=== PATIENT | male | born 1955 | race Caucasian/White ===

== ENCOUNTER 2023-06-18 04:40 | Emergency (ER) | payer OTHER, SELFPAY ==
[2023-06-18 04:41] VITALS: BP 137/89
--- NOTE | 2023-06-18 04:53 | ED.GENMED ---
History of Present Illness
General
Chief Complaint: Flank Pain
Time Seen by Provider: 06/18/23 04:49
Travel History
Have you had any contact with someone who has COVID-19?: No
Do you have any symptoms of coronavirus? Fever > 100 degrees, chills, cough, shortness of breath, sore throat, loss of taste or smell, muscle aches, or headache?: No
History of Present Illness
History of Present Illness:
HPI: About 3 hours ago, the patient had onset right flank pain. This feels similar to his 2 other kidney stone types of pain in the past. He also reports having a 'renal aneurysm'. He took Tylenol and Flomax�symptoms improved and then
dramatically worsened and was vomiting but now currently improved again. He states his last renal function was normal.
EXAM:
GENERAL: Well appearing in no significant distress
HEENT: Moist oral mucosa
CARDIOVASCULAR: No murmurs, normal heart rate, regular rhythm, No chest wall tenderness
PULMONARY: No respiratory distress, breath sounds are clear and equal
ABDOMEN: Soft with no peritoneal signs, no tenderness, no CVA tenderness
NEUROLOGIC: Excellent strength all extremities, no coordination deficits
PSYCHIATRIC: Appropriate mental status, normal insight and judgement
EXTREMITIES: Nontender, no edema, moves all extremities equally
SKIN: No rash, no lesions
TIME OF INITIAL ENCOUNTER: 5 AM
NUMBER AND COMPLEXITY OF PROBLEMS ADDRESSED AT THE ENCOUNTER
� Chronic conditions affecting care: Kidney stones, BPH, 'renal aneurysm', diabetes
� Acute Exacerbation and/or Progression of Chronic Illness: This is an acute problem
� Differential Diagnosis includes: Ureteral stone, pyelonephritis, musculoskeletal low back pain, renal artery aneurysm rupture
AMOUNT AND/OR COMPLEXITY OF DATA TO BE REVIEWED AND ANALYZED
� I performed an independent evaluation of and my interpretation is:
EKG:
CT: I personally reviewed CT imaging and see evidence for a small right UVJ stone
X-rays:
Laboratory Studies: CBC and chemistries relatively unremarkable except for glucose of 162, hematuria noted but no evidence for infection
Other:
� Review of other/old records: The patient had surgical removal of left mid ureteral [place] [address] Gordon
� Clinical information was obtained by an independent historian: I spoke to family at bedside
� Prescriptions/Medications Considered but not given:
� Further testing considered but not performed:
RISK OF COMPLICATIONS AND/OR MORBIDITY OR MORTALITY OF PATIENT MANAGEMENT
� Social determinants of health affecting care: Lives at home
� Discussion with other providers:
� Escalation of care including admission/observation vs risk of discharge considered: I discussed risk and benefits of CT imaging�patient wishes to proceed with CT imaging at this time. Toradol was given. He appears fairly
comfortable upon arrival. CT imaging personally reviewed and I see evidence for UVJ stone. He was given Toradol but now on reassessment at around 5:50 AM, pain has worsened�will give a dose of Dilaudid. On reassessment at 6 AM, the patient
appears comfortable.
Past History
Past History
ED Past Medical History: HTN, Hypercholesterolemia and Other (Kidney stone, left renal aneurism)
ED Past Surgical History: Orthopedic (Fractured wrist and other fractures) and Urological (9 prostatic hypertrophy)
Social History
Personal:
Living: with family
Employment: Employed
Phy Exam
Physical Exam
Physical Exam:
See HPI
Course
Orders/Labs/Results
Orders:
Orders
06/18/23 04:53
0.9% Sodium Chloride 1000 ml [Nss] 1,000 ml IV BOLUS
Ketorolac [Toradol] 15 mg IV NOW STA
06/18/23 04:54
CT Abd/pel Without Iv Or Oral Urgent
Comment:
Reason For Exam: abrupt R flank pain, h/o 'renal aneurysm'
06/18/23 05:07
Complete Blood Count/With Diff Urgent
Comprehensive Metabolic Panel Urgent
Urinalysis Reflex To Culture Urgent
Date Specimen was Collected: 06/18/23
Time Specimen was Collected: 05:04
Urine Microscopic Reflex Cult Urgent
06/18/23 05:43
HYDROmorphone [Dilaudid] 1 mg IV NOW STA
Ondansetron Injectable [Zofran] 4 mg IV NOW STA
Abnormal Lab Results
06/18/23
05:07
MPV 10.6 H fL
(7.4-10.4)
Lymphocytes % 20.3 L %
(20.5-51.1)
BUN 27 H mg/dl
(9-20)
Glucose 162 H mg/dl
(70-99)
Calcium 10.3 H mg/dl
(8.4-10.2)
Ur Occult Blood Reflex 4+ A
(Negative)
Leukocyte Esterase Rfl Trace A
(Negative)
Urine RBC >100 A /HPF
(0-2)
Urine Bacteria (Reflex) Few A
(Negative)
06/18/23 05:07
06/18/23 05:07
Vital Signs
Initial and Last Documented VS:
Initial Vital Signs
Temp Pulse Resp BP Pulse Ox
97.8 F 74 18 137/89 97
06/18/23 04:41 06/18/23 04:41 06/18/23 04:41 06/18/23 04:41 06/18/23 04:41
Last Documented Vital Signs
Temp Pulse Resp BP Pulse Ox
97.8 F 68 16 112/74 98
06/18/23 04:41 06/18/23 05:52 06/18/23 05:52 06/18/23 05:52 06/18/23 05:52
*Critical Care Note
Total Time (30-74mins, 75-104mins- exclusive of procedures): Not Applicable
ED Attending Note
-
Portions of this chart may have been created with voice recognition software.� Occasional wrong word or��sound alike� substitutions may have occurred due to the inherent limitations of voice recognition software.
Discharge Plan
Departure
Patient Disposition: Home (Routine Discharge)
Date of Disposition: 06/18/23
Time of Disposition: 05:58
Patient with high blood pressure during this ER visit?: Yes
Discharge Problem:
Ureteral calculus
Instructions: Kidney Stones (DC), How to Strain Your Urine, BLOOD PRESSURE
Prescriptions:
New
oxycodone-acetaminophen [Percocet] 5-325 mg tablet
1 - 2 tab PO Q8HPRN PRN (Reason: pain) Qty: 14 0RF
ondansetron HCl 4 mg tablet
4 mg PO Q8H PRN (Reason: nausea and vomiting) 3 Days Qty: 14 0RF
No Action
aspirin 81 MG tablet,delayed release (DR/EC)
81 mg PO DAILY
phenazopyridine 100 MG tablet
100 mg PO TIDPRN PRN (Reason: burning on urination) Qty: 0 0RF
ondansetron 4 MG tablet,disintegrating
4 mg PO TIDPRN PRN (Reason: nausea/vomiting) Qty: 6 0RF
tamsulosin 0.4 MG capsule
0.4 mg PO DAILY Qty: 14 0RF
Referrals:
UNKNOWN - PT DOES,NOT KNOW [Unknown Provider] -
Activity Restrictions/Additional Instructions:
You have a 2mm stone at the junction or right ureter and bladder. Please follow-up with a urologist such as Dr. Chahal. I recommend either 3-4 [id number] ibuprofen (Motrin) every 8 hours OR Aleve twice daily with food for a few days.
Return here if worse. Continue Flomax. Blood is noted on urinalysis as expected with kidney stones however there is no clear sign for urinary tract infection. Kidney function is normal. Other basic labs including white blood cell count are
normal.
Interventions
Interventions:
*Risk Screen - Suicide Last Done: 06/18/23 04:41
*General Assessment Last Done: 06/18/23 04:41
*Neglect/Abuse Screening Last Done: 06/18/23 04:41
MX-Cuqufx-Ftemgqrxnf Assessment Last Done: 06/18/23 05:10
ED-Male Genitourinary Assessment Last Done: 06/18/23 05:10
Discharge Date and Time
Print Language: MACANESE
[2023-06-18 04:58] VITALS: BMI 29.2
[2023-06-18] MEDS: TORADOL 15 MG IV (05:05)
[2023-06-18] MEDS: NSS 1000 IV (05:05)
[2023-06-18 05:15] LABS: % Basophils 0.7 % (0-2); % Eosinophils 1.2 % (0-6); % Immature Granulocytes 0.5 % (0-0.5); % Lymphocytes 20.3 % (20.5-51.1); % Monocytes 4.6 % (1.7-9.3); % Neutrophils 72.7 % (42.2-75.2); Absolute Basophils 0.1 10^3/uL (0-0.2); Absolute Eosinophils 0.1 10^3/uL (0-0.7); Absolute Lymphocytes 1.7 10^3/uL (1.2-3.4); Absolute Monocytes 0.4 10^3/uL (0.1-0.6); Absolute Neutrophils 5.9 10^3/uL (1.4-6.5); Hematocrit 45.5 % (39.0-52.0); Hemoglobin 15.8 g/dL (13.0-18.0); Mean Corp Hgb Conc. 34.7 g/dL (33.0-37.0); Mean Corpuscular Hgb 30.2 pg (27.0-31.0); Mean Corpuscular Volume 86.8 fL (80.0-94.0); Mean Platelet Volume 10.6 fL (7.4-10.4); Nucleated Red Blood Cells % 0 % (-); Platelet Count 248 10^3/uL (130-400); Red Blood Cell Count 5.24 10^6/uL (4.70-6.10); Red Cell Dist. Width 12.5 % (11.5-14.5); White Blood Cell Count 8.1 10^3/uL (4.8-10.8)
[2023-06-18 05:18] LABS: Urine Albumin Trace (Neg - Trace); Urine Bilirubin Negative (Negative); Urine Character Slightly Cloudy (Clear); Urine Color Yellow; Urine Glucose Negative (Negative); Urine Ketone Negative (Negative); Urine Leukocyte Trace (Negative); Urine Nitrite Negative (Negative); Urine Occult Blood 4+ (Negative); Urine Specific Gravity 1.025 (<1.030); Urine Urobilinogen Negative (Neg - 1+)
[2023-06-18 05:36] LABS: Urine Bacteria Few (Negative); Urine Red Blood Cell >100 /HPF (0-2); Urine White Cell 0-2 /HPF (0-5)
[2023-06-18 05:40] LABS: ALT (SGPT) 29 U/L (0-50); AST (SGOT) 27 U/L (17-59); Albumin 4.8 g/dl (3.5-5.0); Alkaline Phosphatase 94 U/L (38-126); Blood Urea Nitrogen 27 mg/dl (9-20); Calcium 10.3 mg/dl (8.4-10.2); Carbon Dioxide 24 mmol/L (22-30); Chloride 101 mmol/L (98-107); Estimated Creatinine Clearance 86 ml/min; Glucose 162 mg/dl (70-99); Potassium 4.9 mmol/L (3.5-5.1); Sodium 135 mmol/L (135-145); Total Bilirubin 0.5 mg/dl (0.2-1.3); Total Protein 7.7 g/dl (6.3-8.2); eGFR > 60.00
[2023-06-18] MEDS: ZOFRAN 4 MG IV (05:49)
[2023-06-18] MEDS: DILAUDID 1 MG IV (05:51)
[2023-06-18 05:52] VITALS: BP 112/74
== END 2023-06-18 06:25 | disposition home or self-care (01) ==
LOC: EMR 04:40
PROVIDERS: EMERGENCY PHYSICIAN Emergency Medicine; FAMILY PHYSICIAN Internal Medicine
DX: N20.1 Calculus of ureter (principal); I10 Essential (primary) hypertension; E78.00 Pure hypercholesterolemia, unspecified; Z87.442 Personal history of urinary calculi
CPT/HCPCS: 99284; 96374; 96375; 74176; 80053; 81003; 81015; 85025